=== PATIENT | female | born 1985 | race Caucasian/White ===

== ENCOUNTER 2019-03-14 17:09 | Outpatient (CLI) | payer OTHER ==
[~2019-03-14 17:09] MED LIST: AMOX1TAB12 PO; CEFTIN250 MG PO; KETO10TA2 PO; PEPCID40 MG PO
[2019-03-14] MEDS ORDERED: PRENATABS RX T1 EACH PO (17:44)
[2019-03-14] MEDS ORDERED: ASA81 MG PO (17:44)
[2019-03-14] MEDS ORDERED: FOLIC ACID0.4 MG (17:45)
== END 2019-03-14 18:00 | disposition home or self-care (01) ==
LOC: OBS/DEL 17:09
DX: O26.893 Other specified pregnancy related conditions, third trimester (principal); R10.2 Pelvic and perineal pain; Z34.83 Encounter for supervision of other normal pregnancy, third trimester